=== PATIENT | male | born 1940 | race African-American/Black ===

== ENCOUNTER 2019-07-14 08:12 | Day surgery (SDC) | payer MEDICARE ==
[2019-07-14] VITALS (7 sets, daily range): BP systolic 97–128; BP diastolic 53–80
[~2019-07-14] VITALS: Ht 188 cm; Wt 71.8 kg
[~2019-07-14 08:12] MED LIST: SODIUM CHLORIDE 0.9% 1000ML 1,000 ML IV ONE
[2019-07-14] MEDS ORDERED: PROPOFOL 10 MG/ML 20ML VIAL IV ONE (11:33)
--- NOTE | 2019-07-14 12:05 | NUR ---
REPORT CALLED CALLED REPORT TO MAXI OCONNELL FROM [facility]. GAVE HANDOFF REPORT USING SBAR, EXPLAINED DISCHARGE INSTRUCTIONS NEW PRESCRIPTIONS AND FOLLOW UP APPOINTMENT. AL QUESTIONS/CONCERNS ADDRESSES. PER KOURTNEY, THEY WILL CALL TRANSPORTATION TO COME GEOPHYSICAL E LOGGER PATIENT.
== END 2019-07-14 13:30 ==
LOC: DAH 08:12 → ENDO 08:12
PROVIDERS: ATTEND Internal Medicine
DX: R13.10 Dysphagia, unspecified (principal); K29.50 Unspecified chronic gastritis without bleeding; K21.0 Gastro-esophageal reflux disease with esophagitis; K22.10 Ulcer of esophagus without bleeding; I10 Essential (primary) hypertension; E78.5 Hyperlipidemia, unspecified; I73.9 Peripheral vascular disease, unspecified; F03.90 Unspecified dementia, unspecified severity, without behavioral disturbance, psychotic disturbance, mood disturbance, and anxiety; Z79.82 Long term (current) use of aspirin; Z79.899 Other long term (current) drug therapy; Z96.652 Presence of left artificial knee joint
CPT/HCPCS: 43239; 88305; A4606; J2704; J7030